=== PATIENT | female | born 2000 | race Caucasian/White ===

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

== ENCOUNTER 2019-07-28 09:01 | Emergency (ER) | payer SELFPAY ==
[2019-07-28 09:48] LABS: Urine Blood 3+ (NEG); Urine Glucose NEGATIVE (NEG); Urine Protein 1+ (NEG); Urine Specific Gravity >1.030 (1.005-1.030)
[2019-07-28 10:05] LABS: Urine Bacteria <20 /HPF (<20); Urine RBC <5 /HPF (NONE SEEN)
[2019-07-28 10:06] LABS: Urine Culture Reflex Order REFLEXED
[2019-07-28 10:16] LABS: Absolute Lymphocytes (CBC) 1.3 K/uL (0.7-4.9); Basophils % 0.6 % (0-1.3); Hematocrit 41.3 % (36.0-45.0); Lymphocytes % 23.9 % (15.3-44.8); MPV 7.6 fL (7.6-11.3); RBC Red Blood Cell Count 4.63 M/uL (3.86-4.86)
[2019-07-28 10:26] LABS: Potassium 3.9 mmol/L (3.5-5.1)
--- NOTE | 2019-07-28 11:54 | RAD REPORT ---
EXAM DESCRIPTION: US - Transvaginal OB - 07/28/2019 11:42 am CLINICAL HISTORY: with vaginal bleeding COMPARISON: None. FINDINGS: The uterus is retroverted measuring 6 x 4 x 5 centimeters. Centimeters. The endometrial s tripe measures 10 millimeters. A gestational sac is not seen. Ovaries are normal in size and echotexture.. 10 millimeter left paraovarian cyst Right and left adnexal unremarkable Small amount of free fluid IMPRESSION: Nonvisualization of a gestational sac within the endometrium. These findings could represent an early intrauterine in which the gestational sac is not se en. and even an ectopic can also result in this appearance. This all should be cor related clinically and with serial beta HCG levels. Followup endovaginal sonogram in 1 week recommend ed
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
--- NOTE | 2019-07-28 12:05 | EDPHYS ---
Physician Documentation [facility] Name: Erin Tidwell Age: 18 yrs Sex: Female : 2000 Arrival Date: 07/28/2019 Time: 09:03 Bed 20 Private MD: ED Physician Andrez Rasheed HPI: 07/28 09:19 This 18 yrs old Female presents to ER via Unassigned with complaints of rn Vaginal Bleeding. 09:19 The patient presents with vaginal bleeding that is moderate, with clots, reports using rn 5 pads or tampons per day. Onset: The symptoms/episode began/occurred 2 week(s) ago. Modifying factors: The symptoms are alleviated by nothing, the symptoms are aggravated by nothing. Severity of symptoms: At their worst the symptoms were moderate, in the emergency department the symptoms are unchanged. The patient has not experienced similar symptoms in the past. Reports vaginal bleeding, heavier than normal period, for 2 weeks, had + preg test 2 days ago, denies lightheaded/sob/chest pain/abd pain. No urinary symptoms. No trauma. This would be first . . 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 - Coronavirus screen:: The patient has NOT traveled to [place] in the past 14 days. Proceed with normal triage process as indicated. - Family history:: not pertinent. - Social history:: Smoking status: Patient reports the use of cigarette tobacco products, smokes one-half pack cigarettes per day. - Hospitalizations: : No recent hospitalization is reported. - Ebola Screening: : Patient negative for fever greater than or equal to 101.5 degrees Fahrenheit, and additional compatible Ebola Virus Disease symptoms Patient denies exposure to infectious person Patient denies travel to an Ebola-affected area in the 21 days before illness onset No symptoms or risks identified at this time. ROS: 09:19 Constitutional: Negative for fever, chills, and weight loss, Eyes: Negative for injury, rn pain, redness, and discharge, Neck: Negative for injury, pain, and swelling, Cardiovascular: Negative for chest pain, palpitations, and edema, Respiratory: Negative for shortness of breath, cough, wheezing, and pleuritic chest pain, Abdomen/GI: Negative for abdominal pain, nausea, vomiting, diarrhea, and constipation, : + vaginal bleeding MS/Extremity: Negative for injury and deformity, Skin: Negative for injury, rash, and discoloration, Neuro: Negative for headache, weakness, numbness, tingling, and seizure. Exam: 09:19 Constitutional: This is a well developed, well nourished patient who is awake, alert, rn and in no acute distress. Ambulatory to room without difficulty or assistance. Head/Face: Normocephalic, atraumatic. Eyes: Pupils equal round and reactive to light, extra-ocular motions intact. Normal conjunctivae ENT: MMM Cardiovascular: Regular rate and rhythm. No pulse deficits. Respiratory: Speaking full sentences. No increased work of breathing, no retractions or nasal flaring. Abdomen/GI: soft, non-tender MS/ Extremity: Pulses equal, no cyanosis. Neurovascular intact. Full, normal range of motion. Equal circumference. Neuro: Awake and alert, GCS 15, oriented to person, place, time, and situation. Vital Signs: 09:25 BP 156 / 102; Pulse 92; Resp 16; Temp 98.1; Pulse Ox 100% on R/A; Weight 88.45 kg; iw Height 5 ft. 6 in. (167.64 cm); Pain 0/10; 10:17 BP 112 / 79; Pulse 74; Resp 17; Pulse Ox 99% on R/A; rb1 11:17 BP 106 / 69; Pulse 68; Resp 18; Pulse Ox 100% on R/A; rb1 12:00 BP 109 / 75; Pulse 74; Resp 17; Pulse Ox 99% on R/A; Pain 0/10; rb1 09:25 Body Mass Index 31.47 (88.45 kg, 167.64 cm) iw MDM: 09:05 Patient medically screened. rn 11:40 Differential diagnosis: ectopic , urinary tract infection. Data reviewed: rn vital signs, nurses notes, lab test result(s), radiologic studies, ultrasound, and as a result, I will discharge patient. Counseling: I had a detailed discussion with the patient and/or guardian regarding: the historical points, exam findings, and any diagnostic results supporting the discharge/admit diagnosis, lab results, radiology results, the need for outpatient follow up, to return to the emergency department if symptoms worsen or persist or if there are any questions or concerns that arise at home. Special discussion: I discussed with the patient/guardian in detail that at this point there is no indication for admission to the hospital. It is understood, however, that if the symptoms persist or worsen the patient needs to return immediately for re-evaluation. Based on the history and exam findings, there is no indication for further emergent testing or inpatient evaluation. I discussed with the patient/guardian the need to see the OB Gyne specialist for further evaluation of the symptoms. 11:40 ED course: Given positive preg test at home, and neg UPT here with HCG 10, near rn completed miscarriage, no evidence of ectopic or retained products on ultrasound, recommend OB f/u for serial HCG and further care. . 07/28 09:17 Order name: Quantitative Hcg 07/28 09:17 Order name: Abo/rh Typing; Complete Time: 10:31 07/28 09:17 Order name: Basic Metabolic Panel 07/28 09:17 Order name: CBC with Diff 07/28 09:17 Order name: Urine Microscopic Only 07/28 09:33 Order name: Urine Dipstick--Ancillary (enter results) ms 07/28 09:17 Order name: IV Saline Lock; Complete Time: 10:05 07/28 09:33 Order name: Urine --Ancillary (enter results) ms 07/28 09:48 Order name: Urine --Ancillary; Complete Time: 10:13 [facility] 07/28 09:49 Order name: Urine Dipstick-Ancillary; Complete Time: 10:13 [facility] 07/28 10:06 Order name: Urine Microscopic Only; Complete Time: 10:13 [facility] 07/28 10:33 Order name: US Transvaginal Ob; Complete Time: 12:11 07/28 10:38 Order name: Urine Culture [facility] 07/28 09:17 Order name: Labs collected and sent; Complete Time: 10:05 07/28 09:17 Order name: NPO; Complete Time: 09:42 07/28 09:17 Order name: Urine Dipstick-Ancillary (obtain specimen); Complete Time: 09:30 rn Administered Medications: No medications were administered Disposition: 07/28/19 12:01 Discharged to Home. Impression: Spontaneous . - Condition is Stable. - Discharge Instructions: Miscarriage, Vaginal Bleeding During , First Trimester. - Medication Reconciliation Form, Thank You Letter, Antibiotic Education, Prescription Opioid Use form. - Follow up: Private Physician; When: As needed; Reason: Recheck today's complaints, Repeat Beta-HCG (48 Hours), Re-evaluation by your physician. - Problem is new. - Symptoms have improved. Signatures: Dispatcher [employer] EDMaria Dolores Jaramillo RN RN iw Nieto, Roman, MD MD rn Barber, Rebecca, RN RN rb1 Corrections: (The following items were deleted from the chart) 12: 12:07/28/2019 12:01 Discharged to Home. Impression: Spontaneous . Condition rb1 is Stable. Discharge Instructions: Miscarriage, Vaginal Bleeding During , First Trimester. Forms are Medication Reconciliation Form, Thank You Letter, Antibiotic Education, Prescription Opioid Use. Follow up: Private Physician; When: As needed; Reason: Recheck today's complaints, Repeat Beta-HCG (48 Hours), Re-evaluation by your physician. Problem is new. Symptoms have improved. rn
[2019-07-28 12:33] VITALS: TEMP 98.1
[2019-07-28 12:35] VITALS: BP 109/75; O2SAT 99
== END 2019-07-28 12:20 | disposition home or self-care (01) ==
LOC: ER 09:01
DX: O03.9 Complete or unspecified spontaneous abortion without complication (principal); O99.330 Smoking (tobacco) complicating pregnancy, unspecified trimester
CPT/HCPCS: 36415; 76817; 80048; 81003; 81015; 81025; 84702; 85025; 86900; 86901; 87086; 87088; 99284

== ENCOUNTER 2019-12-25 12:23 | Emergency (ER) | payer SELFPAY ==
--- NOTE | 2019-12-25 12:59 | ER ---
Nurse's Notes [facility] Name: Erin Tidwell Age: 19 yrs Sex: Female : 2000 Arrival Date: 12/25/2019 Time: 12:30 Bed Waiting Private MD: Diagnosis: ED Course: 12/24 12:30 Patient arrived in ED. mr 12:45 Sherry Almonte [facility]-C [facility] kb 12:45 Anrdez Rasheed MD is Attending Physician. kb 12:57 Patient's name was called from ER Comecer. No response. Unable to locate patient. Will jl7 disposition as left without being seen by a provider. Administered Medications: No medications were administered Outcome: 12:58 Patient left the ED. jl7 13:02 Patient left the ED. kb Signatures: Sherry Almonte FNP-C FNP-Ckb Rivera, Mary mr LealShonda, RN RN jl7
--- NOTE | 2019-12-25 13:04 | EDPHYS ---
Physician Documentation [facility] Name: Erin Tidwell Age: 19 yrs Sex: Female : 2000 Arrival Date: 12/25/2019 Time: 12:30 Bed Waiting Private MD: ED Physician MDM: 12/24 13:02 Medical screening is not applicable. kb Administered Medications: No medications were administered Disposition: 12/25/19 12:58 Patient left the facility Before Triage. - Patient left due to unknown. Signatures: Sherry Almonte, ARMAAN-C AIRCRAFT DETAIL DRAFTSPERSON-Shonda Quiroga RN RN jl7 Corrections: (The following items were deleted from the chart) 13:02 12:58 12/25/2019 12:58 Patient left the facility Before Triage. Reason stated they are kb leaving due to unknown. jl7
== END 2019-12-25 13:02 | disposition left against medical advice (07) ==
LOC: ER 12:23
DX: Z02.89 Encounter for other administrative examinations (principal); Z53.21 Procedure and treatment not carried out due to patient leaving prior to being seen by health care provider

== ENCOUNTER 2022-06-06 18:34 | Emergency (ER) | payer SELFPAY ==
[2022-06-06] MEDS ORDERED: FAMOTIDINE 20 MG/2 ML VIAL IV ONE (19:27)
[2022-06-06] MEDS ORDERED: ONDANSETRON 4 MG/2 ML VIAL ONE (19:27)
[2022-06-06] MEDS ORDERED: NA CHLORIDE 0.9% 1,000 ML ONE (19:27)
[2022-06-06 21:11] LABS: Urine Blood Trace-lysed (Negative); Urine Glucose Negative (Negative); Urine Protein Negative (Negative); Urine Specific Gravity 1.015 (1.005-1.030)
[2022-06-06 21:41] LABS: Absolute Lymphocytes (CBC) 2.5 K/uL (0.7-4.9); Hematocrit 42.4 % (36.0-45.0); Lymphocytes % 23.2 % (15.3-44.8); MCV 89.2 fL (80-100); MPV 7.6 fL (7.6-11.3); RBC Red Blood Cell Count 4.75 M/uL (3.86-4.86)
[2022-06-06 21:50] LABS: Urine Bacteria None Seen /HPF (<20); Urine Mucus Slight /HPF (None Seen); Urine RBC <5 /HPF (None Seen)
[2022-06-06 22:06] LABS: Albumin 4.2 g/dL (3.4-5.0); Bilirubin Total 0.5 mg/dL (0.2-1.0); Potassium 4.1 mmol/L (3.5-5.1); Protein, Total 8.5 g/dL (6.4-8.2)
[2022-06-06 22:13] LABS: SARS-COV-2 RT PCR NEGATIVE (NEGATIVE)
[2022-06-06 22:23] LABS: Urine Specific Gravity/Preg 1.015 (1.005-1.030)
--- NOTE | 2022-06-06 22:30 | RAD REPORT ---
EXAM DESCRIPTION: US - Abdomen Exam Limited - 06/06/2022 9:49 pm CLINICAL HISTORY: Right upper quadrant pain COMPARISON: None. FINDINGS: The gallbladder wall is not thickened. A gallstone is not seen. The biliary tree is normal caliber. IMPRESSION: Unremarkable gallbladder ultrasound.
--- NOTE | 2022-06-06 22:41 | RAD REPORT ---
EXAM DESCRIPTION: CT - Abdomen Pelvis W Contrast - 06/06/2022 10:06 pm CLINICAL HISTORY: Abdominal pain COMPARISON: 2015 TECHNIQUE: Computed axial tomography of the abdomen pelvis was obtained. 100 cc Isovue-300 was admin istered intravenously. Oral contrast was not requested which limits evaluation of bowel and appendix All CT scans are performed using dose optimization technique as appropriate and may include automated exposure control or mA/KV adjustment according to patient size. FINDINGS: Mild fatty liver Spleen, pancreas, adrenal and kidneys appear unremarkable. There is no evidence of diverticulitis. No adnexal mass. Small amount of free fluid. An abnormal appendix is not seen IMPRESSION: Small amount of free fluid Mild fatty liver
--- NOTE | 2022-06-07 00:04 | ER ---
Nurse's Notes [facility] Name: Erin Tidwell Age: 21 yrs Sex: Female : 2000 Arrival Date: 06/06/2022 Time: 18:40 Bed 19 Private MD: Diagnosis: Nausea;Dizziness and giddiness Presentation: 06/06 19:34 Chief complaint: Patient states: "I've been nauseous, dizzy, I feel like there is as6 pressure behind my ears". Coronavirus screen: At this time, the client does not indicate any symptoms associated with coronavirus-19. Ebola Screen: No symptoms or risks identified at this time. Initial Sepsis Screen: Does the patient meet any 2 criteria? No. Patient's initial sepsis screen is negative. Does the patient have a suspected source of infection? No. Patient's initial sepsis screen is negative. Risk Assessment: Do you want to hurt yourself or someone else? Patient reports no desire to harm self or others. Onset of symptoms was June 05, 2021. 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 - Social history:: Smoking status: Reported history of juuling and/or vaping. Screenin:15 [facility] ED Fall Risk Assessment (Adult) Score/Fall Risk Level 0 - 2 = Low Risk. Abuse as6 screen: Denies threats or abuse. Denies injuries from another. Nutritional screening: No deficits noted. Tuberculosis screening: No symptoms or risk factors identified. Assessment: 19:40 General: Appears in no apparent distress. Behavior is calm, cooperative. Pain: Denies as6 pain. Neuro: Level of Consciousness is awake, alert, obeys commands, Oriented to person, place, time, situation. Neuro: Reports dizziness. Cardiovascular: Capillary refill < 3 seconds Patient's skin is warm and dry. Respiratory: Airway is patent Trachea midline Respiratory effort is even, unlabored, Respiratory pattern is regular, symmetrical. GI: Reports nausea. EENT: Reports decreased hearing pt report "I feel like there is fluid in my ears". Vital Signs: 19:34 BP 116 / 61; Pulse 71; Resp 18 S; Temp 98.5(O); Pulse Ox 98% on R/A; Weight 108.86 kg as6 (R); Height 5 ft. 6 in. (167.64 cm) (R); Pain 0/10; 21:13 BP 107 / 89; Pulse 77; Resp 18 S; Pulse Ox 99% on R/A; as6 22:00 BP 101 / 51; Pulse 60; Resp 18 S; Pulse Ox 100% on R/A; as6 23:00 BP 103 / 45; Pulse 63; Resp 16 S; Pulse Ox 99% on R/A; as6 06/07 00:19 BP 100 / 52; Pulse 85; Resp 19 S; Pulse Ox 100% on R/A; as6 06/06 19:34 Body Mass Index 38.74 (108.86 kg, 167.64 cm) as6 ED Course: 06/06 18:40 Patient arrived in ED. am2 18:46 Ginny Rodriguez FNP [facility] 7 18:46 Yanelis Dennis MD is Attending Physician. [facility] 19:16 Rambo Lacey, RN is Primary Nurse. as6 19:20 Primary Nurse role handed off by Rambo Lacey, [facility] 19:27 Rambo Lacey, RN is Primary Nurse. as6 19:37 Triage completed. as6 19:37 Arm band placed on. as6 20:45 Inserted saline lock: 18 gauge in right antecubital area, using aseptic technique. as6 Blood collected. ultrasound guided. 21:15 Placed in gown. Bed in low position. Call light in reach. Side rails up X 1. Adult w/ as6 patient. 21:50 US Abdomen Limited In Process Unspecified. EDMS 22:08 CT Abd/Pelvis - IV Contrast Only In Process Unspecified. EDMS 06/07 00:01 Attending Physician role handed off by Yanelis Dennis MD [facility] 00:01 Manoj Iyer MD is Attending Physician. [facility] 00:20 No provider procedures requiring assistance completed. as6 00:25 IV discontinued, intact, bleeding controlled, No redness/swelling at site. Pressure as6 dressing applied. Administered Medications: 06/06 20:50 Drug: NS 0.9% 1000 ml Route: IV; Rate: 1 bolus; Site: right antecubital; as6 06/07 00:25 Follow up: Response: No adverse reaction; IV Status: Completed infusion; IV Intake: as6 1000ml 06/06 20:50 Drug: Pepcid (famotidine) 20 mg Route: IVP; Site: right antecubital; as6 06/07 00:25 Follow up: Response: No adverse reaction as6 06/06 20:50 Drug: Zofran (Ondansetron) 4 mg Route: IVP; Site: right antecubital; as6 06/07 00:25 Follow up: Response: No adverse reaction as6 Medication: 06/06 21:15 VIS not applicable for this client. as6 Intake: 06/07 00:25 IV: 1000ml; Total: 1000ml. as6 Outcome: 00:03 Discharge ordered by . [facility] 00:24 Discharged to home ambulatory, with significant other. as6 00:24 Condition: stable 00:24 Discharge instructions given to patient, Instructed on discharge instructions, follow up and referral plans. medication usage, Demonstrated understanding of instructions, follow-up care, medications, Prescriptions given X 1. 00:25 Patient left the ED. as6 Signatures: Dispatcher [employer] Manoj Warner MD MD cha Moreno, Amanda am2 Gatti, MyKena 2 Rambo Lacey RN RN as6 Ginny Rodriguez FNP NEEDLE LOOM WEAVER 7
--- NOTE | 2022-06-07 00:04 | EDPHYS ---
Physician Documentation [facility] Name: Erin Tidwell Age: 21 yrs Sex: Female : 2000 Arrival Date: 06/06/2022 Time: 18:40 Bed 19 Private MD: ED Physician Manoj Iyer HPI: 06/06 19:40 This 21 yrs old Female presents to ER via Ambulatory with complaints of Dizziness, jh7 Nausea. 19:40 The patient presents with lightheadedness. jh7 19:47 Onset: The symptoms/episode began/occurred 2 day(s) ago. Associated signs and symptoms: jh7 Pertinent positives: abdominal pain, nausea, Abdominal cramping, diarrhea. 21-year-old female presents for nausea, dizziness, mucus in the stool, diarrhea, abdominal cramping, and upper abdominal pain for the past 2 days. The patient denies fever. Reports that the pain is often exacerbated after eating. History of a heart murmur and asthma.. 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 - Social history:: Smoking status: Reported history of juuling and/or vaping. ROS: 19:47 Constitutional: Negative for fever, chills, and weight loss, Eyes: Negative for injury, jh7 pain, redness, and discharge, ENT: Negative for injury, pain, and discharge, Neck: Negative for injury, pain, and swelling, Cardiovascular: Negative for chest pain, palpitations, and edema, Respiratory: Negative for shortness of breath, cough, wheezing, and pleuritic chest pain, Back: Negative for injury and pain, MS/Extremity: Negative for injury and deformity, Skin: Negative for injury, rash, and discoloration. 19:47 Abdomen/GI: Positive for abdominal pain, nausea, diarrhea, abdominal cramps. 19:47 Neuro: Positive for dizziness, Negative for altered mental status, headache, loss of consciousness, numbness, syncope, visual changes, weakness. 19:47 All other systems are negative. Exam: 19:47 Constitutional: This is a well developed, well nourished patient who is awake, alert, jh7 and in no acute distress. Head/Face: Normocephalic, atraumatic. ENT: Nares patent. No nasal discharge, no septal abnormalities noted. Tympanic membranes are normal and external auditory canals are clear. Oropharynx with no redness, swelling, or masses, exudates, or evidence of obstruction, uvula midline. Mucous membranes moist. Neck: Trachea midline, no thyromegaly or masses palpated, and no cervical lymphadenopathy. Supple, full range of motion without nuchal rigidity, or vertebral point tenderness. No Meningismus. Cardiovascular: Regular rate and rhythm with a normal S1 and S2. No gallops, murmurs, or rubs. Normal PMI, no JVD. No pulse deficits. Respiratory: Lungs have equal breath sounds bilaterally, clear to auscultation and percussion. No rales, rhonchi or wheezes noted. No increased work of breathing, no retractions or nasal flaring. Back: No spinal tenderness. No costovertebral tenderness. Full range of motion. Skin: Warm, dry with normal turgor. Normal color with no rashes, no lesions, and no evidence of cellulitis. MS/ Extremity: Pulses equal, no cyanosis. Neurovascular intact. Full, normal range of motion. Neuro: Awake and alert, GCS 15, oriented to person, place, time, and situation. Cranial nerves II-XII grossly intact. Motor strength 5/5 in all extremities. Sensory grossly intact. Cerebellar exam normal. Normal gait. 19:47 Abdomen/GI: Inspection: abdomen appears normal, Bowel sounds: normal, Palpation: soft, mild abdominal tenderness, in the right upper quadrant and left upper quadrant. Vital Signs: 19:34 BP 116 / 61; Pulse 71; Resp 18 S; Temp 98.5(O); Pulse Ox 98% on R/A; Weight 108.86 kg as6 (R); Height 5 ft. 6 in. (167.64 cm) (R); Pain 0/10; 21:13 BP 107 / 89; Pulse 77; Resp 18 S; Pulse Ox 99% on R/A; as6 22:00 BP 101 / 51; Pulse 60; Resp 18 S; Pulse Ox 100% on R/A; 6 23:00 BP 103 / 45; Pulse 63; Resp 16 S; Pulse Ox 99% on R/A; 6 06/07 00:19 BP 100 / 52; Pulse 85; Resp 19 S; Pulse Ox 100% on R/A; [facility] 06/06 19:34 Body Mass Index 38.74 (108.86 kg, 167.64 cm) [facility] MDM: 06/06 18:46 Patient medically screened. [facility] 21:02 Transition of care: After a detail discussion of the patient's case, care is [facility] transferred to Manoj Iyer MD. 06/07 00:04 Differential diagnosis: generalized weakness, idiopathic dizziness, near-syncope, gerson , vertigo. Data reviewed: vital signs, nurses notes, lab test result(s), EKG, radiologic studies, CT scan, ultrasound. Data interpreted: hospital monitor: rate is 77 beats/min, rhythm is regular, Pulse oximetry: on room air is 99 %. Counseling: I had a detailed discussion with the patient and/or guardian regarding: the historical points, exam findings, and any diagnostic results supporting the discharge/admit diagnosis, lab results, radiology results, the need for outpatient follow up, for definitive care, a family practitioner. 06/06 19:08 Order name: CBC with Diff; Complete Time: 00: [facility] 06/06 19:08 Order name: CMP; Complete Time: 00: [facility] 06/06 19:08 Order name: Lipase; Complete Time: 00: [facility] 06/06 19:08 Order name: Urine Microscopic Only; Complete Time: 00:01 [facility] 06/06 19:08 Order name: COVID-19/FLU A+B; Complete Time: 00: [facility] 06/06 21:11 Order name: Urine --Ancillary (enter results); Complete Time: 00:01 [facility] 06/06 19:08 Order name: CT Abd/Pelvis - IV Contrast Only; Complete Time: 00:01 [facility] 06/06 19:08 Order name: IV Saline Lock; Complete Time: 21:12 [facility] 06/06 19:08 Order name: Labs collected and sent; Complete Time: 21:12 [facility] 06/06 21:02 Order name: US Abdomen Limited; Complete Time: 00:01 [facility] 06/06 21:11 Order name: Urine Dipstick-Ancillary; Complete Time: 00:01 [facility] 06/06 19:08 Order name: Urine Dipstick-Ancillary (obtain specimen); Complete Time: 21:10 [facility] 06/06 19:08 Order name: Urine Test (obtain specimen); Complete Time: 21:10 [facility] Administered Medications: 06/06 20:50 Drug: NS 0.9% 1000 ml Route: IV; Rate: 1 bolus; Site: right antecubital; 6 06/07 00:25 Follow up: Response: No adverse reaction; IV Status: Completed infusion; IV Intake: as6 1000ml 06/06 20:50 Drug: Pepcid (famotidine) 20 mg Route: IVP; Site: right antecubital; 6 06/07 00:25 Follow up: Response: No adverse reaction 6 06/06 20:50 Drug: Zofran (Ondansetron) 4 mg Route: IVP; Site: right antecubital; 6 06/07 00:25 Follow up: Response: No adverse reaction [facility] Disposition: 00:03 Co-signature as Attending Physician, Manoj Iyer MD I agree with the assessment and gerson plan of care. Disposition Summary: 06/07/22 00:03 Discharge Ordered Location: Home gerson Problem: new gerson Symptoms: have improved gerson Condition: Stable gerson Diagnosis - Nausea gerson - Dizziness and giddiness gerson Followup: gerson - With: Private Physician - When: 2 - 3 days - Reason: Recheck today's complaints, Continuance of care, Re-evaluation by your physician Discharge Instructions: - Discharge Summary Sheet gerson - Dizziness gerson - Nausea and Vomiting, Adult gerson - Dizziness, [id number] gerson Forms: - Medication Reconciliation Form gerson - Thank You Letter gerson - Antibiotic Education gerson - Prescription Opioid Use gerson Prescriptions: - Zofran 4 mg Oral Tablet - take 1 tablet by ORAL route every 12 hours As needed; 20 tablet; Refills: 0, gerson Product Selection Permitted Signatures: Dispatcher [employer] Manoj Warner MD MD cha Slawson, Ashby, RN RN as6 Ginny Rodriguez, COFFEE BLENDER COFFEE BLENDER 7 Corrections: (The following items were deleted from the chart) 06/06 19:49 19:40 The patient presents with lightheadedness, [place] [id number] 19:51 19:47 21-year-old female presents for nausea, dizziness, mucus in the stool, diarrhea, jh7 abdominal cramping, and lower abdominal pain for the past 2 days. The patient denies fever. Reports that the pain is often exacerbated after eating. History of a heart murmur and asthma.. 7
[2022-06-07 00:56] VITALS: TEMP 98.5
[2022-06-07 01:01] VITALS: BP 100/52; O2SAT 100
--- NOTE | 2022-06-08 16:06 | EKG ---
Test Date: 2022-06-06 Test Time: 20:46:55 Package Handler: MEASUREMENT RESULTS: Intervals: Rate: 59 CA: 146 QRSD: 84 QT: 414 QTc: 409 D[place]: P: 14 CA: 146 QRS: 26 T: 22 INTERPRETIVE STATEMENTS: Sinus bradycardia Minimal voltage criteria for LVH, may be normal variant Borderline ECG Compared to ECG 12/28/2017 01:10:23 Left ventricular hypertrophy now present Sinus rhythm no longer present Electronically Signed On 06-08-22 16:04:37 [employer]NAGER STORE by Nba Womack
== END 2022-06-07 00:25 | disposition home or self-care (01) ==
LOC: ER 18:34
DX: R11.0 Nausea (principal); R42 Dizziness and giddiness; R10.11 Right upper quadrant pain; Z20.822 Contact with and (suspected) exposure to COVID-19
CPT/HCPCS: 0240U; 36415; 74177; 76705; 80053; 81003; 81015; 81025; 83690; 85025; 93005; 96361; 96374; 96375; 99284; J2405; J7030; Q9967

== ENCOUNTER 2022-07-27 12:23 | Emergency (ER) | payer SELFPAY ==
[2022-07-27 13:25] LABS: Urine Blood Trace-intact (Negative); Urine Glucose Negative (Negative); Urine Protein Negative (Negative); Urine Specific Gravity 1.015 (1.005-1.030); Urine pH 5.5 (5.0-7.0)
[2022-07-27 13:27] LABS: Urine Specific Gravity/Preg 1.015 (1.005-1.030)
[2022-07-27] MEDS ORDERED: NA CHLORIDE 0.9% 1,000 ML ONE (13:30)
[2022-07-27 13:35] LABS: Urine Bacteria <20 /HPF (<20); Urine Mucus Slight /HPF (None Seen); Urine RBC <5 /HPF (None Seen)
[2022-07-27 13:56] LABS: Absolute Lymphocytes (CBC) 2.6 K/uL (0.7-4.9); Hematocrit 41.1 % (36.0-45.0); Lymphocytes % 21.1 % (15.3-44.8); MCV 89.4 fL (80-100)
[2022-07-27 14:03] LABS: Barbiturates NEGATIVE (NEGATIVE); Benzodiazepines NEGATIVE (NEGATIVE); Cocaine NEGATIVE (NEGATIVE); METHAMPHETAM NEGATIVE (NEGATIVE); Methadone NEGATIVE (NEGATIVE); Opiates NEGATIVE (NEGATIVE); Phencyclidine NEGATIVE (NEGATIVE); THC Cannibis NEGATIVE (NEGATIVE)
[2022-07-27 14:13] LABS: Bilirubin Total 0.4 mg/dL (0.2-1.0); Potassium 4.3 mmol/L (3.5-5.1); Protein, Total 8.3 g/dL (6.4-8.2)
--- NOTE | 2022-07-27 14:27 | RAD REPORT ---
EXAM DESCRIPTION: CT - Head Brain Wo Cont - 07/27/2022 1:50 pm CLINICAL HISTORY: DIZZINESS COMPARISON: No comparisons TECHNIQUE: Noncontrast head CT images ad were obtained without IV contrast. Multiplanar reformats we re generated and reviewed. All CT scans are performed using dose optimization technique as appropriate and may include automated exposure control or mA/KV adjustment according to patient size. FINDINGS: No intracranial hemorrhage, mass, or edema. Midline structures are unremarkable. Normal ventricular caliber for age. Morgan-white matter differentiation is preserved, without evidence of acute infarct. No abnormal extra- axial fluid collections. Mastoid air cells and visualized portions of the paranasal sinuses are clear. No acute bony findings. IMPRESSION: No evidence of an acute intracranial process.
--- NOTE | 2022-07-27 16:02 | EDPHYS ---
Physician Documentation [facility] Name: Erin Tidwell Age: 21 yrs Sex: Female : 2000 Arrival Date: 07/27/2022 Time: 12:24 Bed 16 Private MD: ED Physician Manoj Iyer HPI: 07/27 13:45 This 21 yrs old Female presents to ER via Ambulatory with complaints of ear ringing, snw Dizziness, dehydration. 13:45 The patient presents with lightheadedness. Onset: The symptoms/episode began/occurred snw acutely. Context: occurred at home. Modifying factors: The symptoms are alleviated by nothing, the symptoms are aggravated by nothing. Associated signs and symptoms: Pertinent positives: ear ringing and pressure behind eyes. Severity of symptoms: At their worst the symptoms were moderate in the emergency department the symptoms have improved. Patient's baseline: Neuro: alert and fully oriented, Motor: no deficits, Ambulation: walks without assistance, Speech: normal. The patient has experienced a previous episode, approximately 2 months ago. It is unknown whether or not the patient has recently seen a physician. 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 - Social history:: Smoking status: Reported history of juuling and/or vaping. ROS: 13:43 Constitutional: Negative for fever, chills, and weight loss, Eyes: Negative for injury, snw pain, redness, and discharge, ENT: Negative for injury, pain, and discharge, Neck: Negative for injury, pain, and swelling. 13:43 Respiratory: Negative for shortness of breath, cough, wheezing, and pleuritic chest pain, Abdomen/GI: Negative for abdominal pain, nausea, vomiting, diarrhea, and constipation, Back: Negative for injury and pain, : Negative for injury, bleeding, discharge, and swelling, MS/Extremity: Negative for injury and deformity, Skin: Negative for injury, rash, and discoloration. 13:43 Cardiovascular: Positive for palpitations. 13:43 Neuro: Positive for dizziness, tingling, intermittent. Exam: 13:43 Constitutional: This is a well developed, well nourished patient who is awake, alert, snw and in no acute distress. Head/Face: Normocephalic, atraumatic. Eyes: Pupils equal round and reactive to light, extra-ocular motions intact. Lids and lashes normal. Conjunctiva and sclera are non-icteric and not injected. Cornea within normal limits. Periorbital areas with no swelling, redness, or edema. ENT: Nares patent. No nasal discharge, no septal abnormalities noted. Tympanic membranes are normal and external auditory canals are clear. Oropharynx with no redness, swelling, or masses, exudates, or evidence of obstruction, uvula midline. Mucous membranes moist. Neck: Trachea midline, no thyromegaly or masses palpated, and no cervical lymphadenopathy. Supple, full range of motion without nuchal rigidity, or vertebral point tenderness. No Meningismus. Chest/axilla: Normal chest wall appearance and motion. Nontender with no deformity. No lesions are appreciated. Cardiovascular: Regular rate and rhythm with a normal S1 and S2. No gallops, murmurs, or rubs. Normal PMI, no JVD. No pulse deficits. Respiratory: Lungs have equal breath sounds bilaterally, clear to auscultation and percussion. No rales, rhonchi or wheezes noted. No increased work of breathing, no retractions or nasal flaring. Abdomen/GI: Soft, non-tender, with normal bowel sounds. No distension or tympany. No guarding or rebound. No evidence of tenderness throughout. Back: No spinal tenderness. No costovertebral tenderness. Full range of motion. Skin: Warm, dry with normal turgor. Normal color with no rashes, no lesions, and no evidence of cellulitis. MS/ Extremity: Pulses equal, no cyanosis. Neurovascular intact. Full, normal range of motion. Neuro: Awake and alert, GCS 15, oriented to person, place, time, and situation. Cranial nerves II-XII grossly intact. Motor strength 5/5 in all extremities. Sensory grossly intact. Cerebellar exam normal. Normal gait. Psych: Awake, alert, with orientation to person, place and time. Behavior, mood, and affect are within normal limits. Vital Signs: 12:45 BP 133 / 88; Pulse 88; Resp 16; Temp 98.6; Pulse Ox 100% ; Weight 111.13 kg; Height 5 [facility] ft. 6 in. (167.64 cm); Pain 0/10; 13:42 BP 117 / 75; Pulse 84; Resp 18; Pulse Ox 100% on R/A; Pain 0/10; ld1 14:10 BP 111 / 61; Pulse 85; Resp 18; Pulse Ox 100% on R/A; ld1 15:09 BP 119 / 61; Pulse 81; Resp 18; Pulse Ox 100% on R/A; Pain 7/10; ld1 16:06 BP 117 / 64 Supine; Pulse 75; ld1 16:08 BP 127 / 84 Sitting; Pulse 85; ld1 16:10 BP 115 / 83 Standing; Pulse 79; ld1 16:30 BP 129 / 78; Pulse 81; Resp 18; Temp 98.3(O); Pulse Ox 100% on R/A; Pain 0/10; ld1 12:45 Body Mass Index 39.54 (111.13 kg, 167.64 cm) [facility] MDM: 13:07 Patient medically screened. gerson 16:02 Differential diagnosis: cardiac arrhythmia, hypovolemia, , sinusitis. Data snw reviewed: vital signs, nurses notes. Counseling: I had a detailed discussion with the patient and/or guardian regarding: the historical points, exam findings, and any diagnostic results supporting the discharge/admit diagnosis, lab results, radiology results, the need for outpatient follow up, to return to the emergency department if symptoms worsen or persist or if there are any questions or concerns that arise at home. Special discussion: Based on the history and exam findings, there is no indication for further emergent testing or inpatient evaluation. I discussed with the patient/guardian the need to see the primary care provider for further evaluation of the symptoms. 07/27 12:55 Order name: CBC with Diff snw 07/27 12:55 Order name: CMP snw 07/27 12:55 Order name: Lipase snw 07/27 12:55 Order name: Urine Microscopic Only snw 07/27 13:24 Order name: UDS snw 07/27 13:25 Order name: Urine Dipstick-Ancillary; Complete Time: 13:31 EDMS 07/27 13:25 Order name: Urine --Ancillary (enter results) em1 07/27 13:27 Order name: Urine --Ancillary; Complete Time: 13:31 EDMS 07/27 13:36 Order name: Urine Microscopic Only; Complete Time: 13:37 EDMS 07/27 13:38 Order name: CT Head Brain wo Cont snw 07/27 13:58 Order name: CBC with Automated Diff; Complete Time: 13:58 EDMS 07/27 14:03 Order name: Urine Drug Screen; Complete Time: 14:11 EDMS 07/27 14:13 Order name: Comprehensive Metabolic Panel; Complete Time: 14:25 EDMS 07/27 14:13 Order name: Lipase; Complete Time: 14:25 EDMS 07/27 12:55 Order name: IV Saline Lock; Complete Time: 13:42 snw 07/27 12:55 Order name: Labs collected and sent; Complete Time: 13:42 snw 07/27 12:55 Order name: Urine Dipstick-Ancillary (obtain specimen); Complete Time: 13:24 snw 07/27 12:55 Order name: Urine Test (obtain specimen); Complete Time: 13:24 snw 07/27 13:38 Order name: EKG; Complete Time: 13:38 snw 07/27 13:38 Order name: EKG - Nurse/Tech; Complete Time: 14:10 snw 07/27 14:27 Order name: CT; Complete Time: 14:29 EDMS 07/27 15:34 Order name: Orthostatics; Complete Time: 16:14 snw Administered Medications: 13:42 Drug: NS 0.9% 1000 ml Route: IV; Rate: 1 bolus; Site: left upper arm; ld1 Disposition Summary: 07/27/22 16:01 Discharge Ordered Location: Home snw Condition: Stable snw Diagnosis - Dizziness and giddiness snw - Syncope Near snw Followup: snw - With: Emergency Department - When: As needed - Reason: Worsening of condition Followup: snw - With: Private Physician - When: 2 - 3 days - Reason: Recheck today's complaints, Continuance of care, Re-evaluation by your physician Discharge Instructions: - Discharge Summary Sheet snw - Dizziness snw - Near-Syncope snw - Rehydration, Adult snw - Electrophysiology Study snw Forms: - Medication Reconciliation Form snw - Thank You Letter snw - Antibiotic Education snw - Prescription Opioid Use snw Signatures: Dispatcher [employer] EDManoj Patricia MD MD cha Waters, Shelly, CAN TOP SETTER-C CAN TOP SETTER-Csnw Delmy Perez, RN RN ld1 Candice Franco RN RN jh5
--- NOTE | 2022-07-27 16:02 | ER ---
Nurse's Notes [facility] Name: Erin Tidwell Age: 21 yrs Sex: Female : 2000 Arrival Date: 07/27/2022 Time: 12:24 Bed 16 Private MD: Diagnosis: Dizziness and giddiness;Syncope Near Presentation: 07/27 12:45 Chief complaint: Patient states: i was here a couple months ago for dehydration and jh5 nothing has gotten better. I am dizzy all the time. My heart rate will spike and then go to normal like all the time. I went to an urgent care and they wanted to check my thyroid but i dont have insurance so he discharged me and told me to come here. Coronavirus screen: Vaccine status: Patient reports receiving the 2nd dose of the covid vaccine. Client denies travel out of the [place] in the last 14 days. Ebola Screen: Patient negative for fever greater than or equal to 101.5 degrees Fahrenheit, and additional compatible Ebola Virus Disease symptoms Patient denies exposure to infectious person. Patient denies travel to an Ebola-affected area in the 21 days before illness onset. Initial Sepsis Screen: Does the patient meet any 2 criteria? No. Patient's initial sepsis screen is negative. Does the patient have a suspected source of infection? No. Patient's initial sepsis screen is negative. Risk Assessment: Do you want to hurt yourself or someone else? Patient reports no desire to harm self or others. 12:45 Method Of Arrival: Ambulatory [facility] 12:45 Acuity: KALEY 3 jh5 Triage Assessment: 12:50 General: Appears in no apparent distress. comfortable, obese, Behavior is calm, jh5 cooperative, appropriate for age. Pain: Denies pain. 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 - Social history:: Smoking status: Reported history of juuling and/or vaping. Screenin:42 [facility] ED Fall Risk Assessment (Adult) History of falling in the last 3 months, ld1 including since admission No falls in past 3 months (0 pts). Abuse screen: Denies threats or abuse. Denies injuries from another. Nutritional screening: No deficits noted. Tuberculosis screening: No symptoms or risk factors identified. Assessment: 13:42 General: Appears in no apparent distress. comfortable, Behavior is calm, cooperative, ld1 appropriate for age. Pain: Denies pain. Neuro: Level of Consciousness is awake, alert, obeys commands, Oriented to person, place, time, situation, Reports dizziness. Cardiovascular: Capillary refill < 3 seconds Patient's skin is warm and dry. Rhythm is sinus rhythm. Respiratory: Airway is patent Respiratory effort is even, unlabored. GI: Abdomen is round non-distended. : No signs and/or symptoms were reported regarding the genitourinary system. EENT: No signs and/or symptoms were reported regarding the EENT system. Derm: No signs and/or symptoms reported regarding the dermatologic system. Musculoskeletal: No signs and/or symptoms reported regarding the musculoskeletal system. 15:09 Reassessment: Patient appears in no apparent distress at this time. Patient and/or ld1 family updated on plan of care and expected duration. Pain level reassessed. Patient is alert, oriented x 3, equal unlabored respirations, skin warm/dry/pink. 15:09 Reassessment: c/o headache. Notified ERP. See MAR for orders. ld1 16:30 Reassessment: Patient appears in no apparent distress at this time. Patient and/or ld1 family updated on plan of care and expected duration. Pain level reassessed. Patient is alert, oriented x 3, equal unlabored respirations, skin warm/dry/pink. Pt still complaining on dizziness. ERP aware. Discharge instructions given to patient and family. Patient states symptoms have not improved. Vital Signs: 12:45 BP 133 / 88; Pulse 88; Resp 16; Temp 98.6; Pulse Ox 100% ; Weight 111.13 kg; Height 5 jh5 ft. 6 in. (167.64 cm); Pain 0/10; 13:42 BP 117 / 75; Pulse 84; Resp 18; Pulse Ox 100% on R/A; Pain 0/10; ld1 14:10 BP 111 / 61; Pulse 85; Resp 18; Pulse Ox 100% on R/A; ld1 15:09 BP 119 / 61; Pulse 81; Resp 18; Pulse Ox 100% on R/A; Pain 7/10; ld1 16:06 BP 117 / 64 Supine; Pulse 75; ld1 16:08 BP 127 / 84 Sitting; Pulse 85; ld1 16:10 BP 115 / 83 Standing; Pulse 79; ld1 16:30 BP 129 / 78; Pulse 81; Resp 18; Temp 98.3(O); Pulse Ox 100% on R/A; Pain 0/10; ld1 12:45 Body Mass Index 39.54 (111.13 kg, 167.64 cm) [facility] ED Course: 12:24 Patient arrived in ED. am2 12:36 Cadence Andrews FNP-C [facility] snw 12:36 Manoj Iyer MD is Attending Physician. snw 12:50 Triage completed. [facility] 12:50 Arm band placed on right wrist. [facility] 13:16 Delmy Perez, RN is Primary Nurse. ld1 13:42 Patient has correct armband on for positive identification. Placed in gown. Bed in low ld1 position. Call light in reach. Side rails up X2. mental health director on. Pulse ox on. NIBP on. Door closed. Noise minimized. Warm blanket given. 13:42 Inserted saline lock: 22 gauge in left upper arm, using aseptic technique. Blood ld1 collected. 13:42 No provider procedures requiring assistance completed. ld1 13:48 UDS Sent. 16:30 IV discontinued, intact, bleeding controlled, No redness/swelling at site. ld1 Administered Medications: 13:42 Drug: NS 0.9% 1000 ml Route: IV; Rate: 1 bolus; Site: left upper arm; ld1 Medication: 13:42 VIS not applicable for this client. ld1 Outcome: 16:01 Discharge ordered by . snw 16:29 Discharged to home ambulatory, with family. ld1 16:29 Condition: stable 16:29 Discharge instructions given to patient, family, Instructed on discharge instructions, follow up and referral plans. Demonstrated understanding of instructions, follow-up care. 16:32 Patient left the ED. ld1 Signatures: Cadence Andrews FNP-C RV MECHANIC-Csnw Cassi Rangel am2 Delmy Perez, RN RN ld1 Candcie Franco RN RN [facility] Marilyn Oneill Corrections: (The following items were deleted from the chart) 16:32 16:30 BP 129 / 78; Pulse 81bpm; Resp 18bpm; Pulse Ox 100% RA; Pain 0/10; ld1 ld1
[2022-07-27 17:09] VITALS: O2SAT 100
[2022-07-27 17:17] VITALS: BP 129/78; TEMP 98.3
--- NOTE | 2022-07-28 16:32 | EKG ---
Test Date: 2022-07-27 Test Time: 14:07:43 Data Processing Auditor: NATHANIEL MEASUREMENT RESULTS: Intervals: Rate: 74 NM: 158 QRSD: 86 QT: 400 QTc: 444 [place]: P: 81 NM: 158 QRS: 57 T: 88 INTERPRETIVE STATEMENTS: Normal sinus rhythm with sinus arrhythmia Possible Lateral infarct, age undetermined Abnormal ECG Compared to ECG 06/06/2022 20:46:55 Myocardial infarct finding now present Sinus bradycardia no longer present Left ventricular hypertrophy no longer present Electronically Signed On 07-28-22 16:29:30 BUS COMPANY MANAGER by Nba Womack
== END 2022-07-27 16:32 | disposition home or self-care (01) ==
LOC: ER 12:23
DX: R42 Dizziness and giddiness (principal); R55 Syncope and collapse
CPT/HCPCS: 36415; 70450; 80053; 80307; 81003; 81015; 81025; 83690; 85025; 93005; 99284; J7030